=== PATIENT | female | born 1970 | race Caucasian/White ===

== ENCOUNTER 2016-10-05 14:20 | Emergency (ER) | payer BC ==
--- NOTE | 2016-10-05 14:49 | UC ---
Syncope/New Syncope HPI - HPI Summary HPI Summary: 46 yo F with hip and back pain for 3 years, but for past month left hip in pain. For the past 3 days, when leaned in bed, left hip was painful. This am 0400 when went to , had severe pain, and then hit her head on the bottom of the door. Pt had no recollection of this. got pt up, and then pt fell on the floor again, "lost consciousness", "had no color" was "sweaty". Then 0800 pt sat on toilet with severe left hip pain, pt sat and leaned back, and "couldn't see" for more than 10 seconds. Pt attributes this passing out to the severe pain in her left hip. States she has never passed out before. wanted to take pt at that time to the ER. Pt then drove self to work, finished work, was not sick at work, and then drove herself her to . Had MRI of her back 2 yrs ago which showed arthritis and narrowing and a disc. Pt states she has had episodes of "almost passing out" when she gets up quickly. Pt states her pain level is a 7 but declines any pain med at this time. - History Of Current Complaint Stated Complaint: HIP/BACK PAIN PASSED OUT X 3 Time Seen by Provider: 10/05/16 14:29 Hx Obtained From: Patient Hx Last Menstrual Period: ablation 9 years ago ?: No Onset/Duration: Sudden Onset, Lasting Hours, Resolved Activity At Onset: Other - getting up Timing: Constant Frequency: Episodes x___ - 3, Episodes Lasting ____ (in Mins/Days/Weeks/Years) - 10min Context: Witnessed - 2 x, Loss Of Consciousness Associated Head Trauma: Yes Pain Intensity: 7 - left hip, no head pain, no neck pain Pain Scale Used: 0-10 Numeric Aggravating Factor(s): Nothing Alleviating Factor(s): Nothing Associated Signs And Symptoms: Positive: Head Trauma (Recent) - this am, Other - left hip. Negative: Dizzy, Headache - Allergies/Home Medications Allergies/Adverse Reactions: Allergies Allergy/AdvReac Type Severity Reaction Status Date / Time Garlic Allergy See Comment Verified 10/05/16 14:59 Home Medications: Home Medications Amphetamine/Dextroamph ER(NF) [Adderal XR (NF)] 20 mg PO DAILY 10/05/16 [ History Confirmed 10/05/16] Hydrochlorothiazide [Microzide-] 25 mg PO DAILY 10/05/16 [History Confirmed ] PMH/Surg Hx/FS Hx/Imm Hx Previously Healthy: Yes - Surgical History Surgical History: Yes - ACL, ablation, - Family History Known Family History: Positive: Other - father with cancer; sister with heart murmur. - Social History Occupation: Employed Full-time Lives: With Family Alcohol Use: Weekly Substance Use Type: None Smoking Status (MU): Never Smoked Tobacco Review of Systems Constitutional: Negative Skin: Negative Eyes: Negative ENT: Negative Respiratory: Negative Cardiovascular: Negative Gastrointestinal: Negative Genitourinary: Negative Motor: Negative Neurovascular: Negative Musculoskeletal: Arthralgia - left hip Neurological: Negative Psychological: Negative All Other Systems Reviewed And Are Negative: Yes Physical Exam Triage Information Reviewed: Yes Appearance: Well-Appearing, Well-Nourished, Pain Distress Vital Signs: temp 100 noted Vital Signs Reviewed: Yes Eyes: Positive: Conjunctiva Clear ENT: Positive: Hearing grossly normal, Pharynx normal, TMs normal Neck: Positive: Supple, Nontender, No Lymphadenopathy Respiratory: Positive: Lungs clear, Normal breath sounds, No respiratory distress Cardiovascular: Positive: RRR, No Murmur, Pulses Normal, Brisk Capillary Refill Musculoskeletal: Positive: Strength Intact, ROM Intact, Other: - Left hip pain ant, able to bear weight Neurological: Positive: Alert, Muscle Tone Normal, Other: - CN II-XII intact, Motor 5/5 intact, Sensation intact; reflexes2+ symmetric Psychological Exam: Normal Skin Exam: Normal Syncope Course/Dx - Course Course Of Treatment: EKG SR, 74, nl AV, slight IVCD 130, no acute changes, no prior to compare. - Differential Dx/Diagnosis Differential Diagnosis/HQI/PQRI: Dysrhythmia, Pulmonary Embolism, Vasovagal Episode, Other - severe pain Provider Diagnoses: syncope. left hip pain Discharge - Discharge Plan Condition: Stable Disposition: AGAINST MEDICAL ADVICE Discharge Disposition Comment: pt will go by private car to ED with driving. Referrals: Benito Sykes MD [Primary Care Provider] -
[2016-10-05 15:30] VITALS: BP 115/70
== END 2016-10-05 15:17 | disposition left against medical advice (07) ==
LOC: UCEAST 14:20
DX: R55 Syncope and collapse (principal); M25.552 Pain in left hip
CPT/HCPCS: 81003; 87086; 93005; 99202; G0463

== ENCOUNTER 2016-10-05 15:45 | Emergency (ER) | payer BC ==
[2016-10-05 16:30] VITALS: BP 106/51
[2016-10-05] MEDS ORDERED: Ondansetron INJ* 2 MG/ML VIAL IV ONE (16:47)
[2016-10-05] MEDS ORDERED: NS 0.9% 1000 ML* 1,000 ML IV ONE (16:47)
[2016-10-05] MEDS ORDERED: Ketorolac INJ* 30 MG/ML 1 ML VIAL IV ONE (16:47)
[2016-10-05 17:04] LABS: Hematocrit 41 % (35-47); Mean Corpuscular HGB Conc 34 g/dl (31-36); Mean Corpuscular Hemoglobin 31 pg (27-31); Mean Corpuscular Volume 91 fL (80-97); Mean Platelet Volume 8 um3 (7.4-10.4); Red Blood Count 4.49 10^6/ul (4.0-5.4); Red Cell Distribution Width 13 % (10.5-15); White Blood Count 7.9 10^3/ul (3.5-10.8)
[2016-10-05 17:15] LABS: ALT 37 U/L (7-52); AST 30 U/L (13-39); Albumin 4.5 g/dL (3.2-5.2); Alkaline Phosphatase 58 U/L (34-104); Anion Gap 8 mmol/L (2-11); BUN/Creatinine Ratio 16.3 (8-20); Blood Urea Nitrogen 15 mg/dL (6-24); C Reactive Protein < 1.00 mg/L (< 5.00); CO2 Carbon Dioxide 25 mmol/L (22-32); Calcium 9.5 mg/dL (8.6-10.3); Chloride 102 mmol/L (101-111); EGFR African American 84.5 (>60); EGFR Non-African American 65.7 (>60); Globulin 3.1 g/dL (2-4); Glucose 110 mg/dL (70-100); Potassium 3.1 mmol/L (3.5-5.0); Sodium 135 mmol/L (133-145); Total Protein 7.6 g/dL (6.4-8.9)
--- NOTE | 2016-10-05 17:45 | RAD ---
Indication: Chronic low back pain extending to the LEFT hip for 3 days. Comparison: March 05, 2007 Technique: AP, lateral, and oblique views lumbar sacral spine. Report: Straightening relative to normal lumbar lordosis. Negative for spondylolisthesis at any level. Negative for fracture or spondylolysis. Multilevel mild vertebral endplate osteophytosis. Mild L5-S1 disc space narrowing. Mild multilevel facet joint osteoarthritis. Unremarkable paravertebral soft tissue contours. IMPRESSION: Multilevel mild degenerative spondylosis and facet joint osteoarthritis increased over the remote prior exam.
--- NOTE | 2016-10-05 17:46 | RAD ---
Indication: 3 days LEFT hip pain. Comparison: None. Technique: AP pelvis and AP and frog-leg lateral views LEFT hip. Report: The LEFT hip is normally located and without evidence for fracture or focal osseous lesion. Preserved LEFT hip joint space symmetric with the RIGHT. Unremarkable sacroiliac joints and pubic symphysis. Unremarkable soft tissue contours. IMPRESSION: Negative LEFT hip series.
--- NOTE | 2016-10-05 18:29 | ED ---
Nolberto Meza Anna, scribed for Shelia Pop MD on 10/05/16 at 1614 . Syncope/Near Syncope - HPI Summary HPI Summary: Patient is a 46 y/o female coming to [facility] presenting with constant acute on chronic left hip pain that began three days ago. The pain starts in her left pelvis and moves to her lower back. She has had pain there for years, but the pain became severe in the last three days. She has not been able to get out of bed or stand up because of the pain. The pain is somewhat alleviated by movement. She is not able to stay in the same position for a long period of time. Today, she lost consciousness three times because of the pain. The pain is currently at a severity of 7/10. Denies changes in urinary symptoms. She has been to physical therapy for the hip. Her PCP didnt want to give her an anti- inflammatory pill because then she would not be able to take her fluid pill. - History Of Current Complaint Chief Complaint: EDSyncope Time Seen by Provider: 10/05/16 16:08 Hx Obtained From: Patient, Family/Police Captain Senior - Accompanied by Onset/Duration: Lasting Days - Allergies/Home Medications Allergies/Adverse Reactions: Allergies Allergy/AdvReac Type Severity Reaction Status Date / Time Garlic Allergy See Comment Verified 10/05/16 15:49 PMH/Surg Hx/FS Hx/Imm Hx Endocrine/Hematology History: Denies: Hx Diabetes, Hx Thyroid Disease Cardiovascular History: Denies: Hx Hypertension Respiratory History: Denies: Hx Asthma, Hx Chronic Obstructive Pulmonary Disease (COPD) GI History: Denies: Hx Ulcer Psychiatric History: Reports: Hx Attention Deficit Hyperactivity Disorder - Surgical History Surgery Procedure, Year, and Place: acl. ablasion 2009 Infectious Disease History: No Infectious Disease History: Reports: Hx Shingles - 2 yrs ago Denies: Hx Clostridium Difficile, Hx Hepatitis, Hx Human Immunodeficiency Virus (HIV), Hx of Known/Suspected MRSA, Hx Tuberculosis, Hx Known/Suspected VRE , Hx Known/Suspected VRSA, History Other Infectious Disease, Traveled Outside the [place] in Last 30 Days - Family History Known Family History: Positive: Other - father with cancer Negative: Cardiac Disease - Social History Lives: With Family - with Alcohol Use: Weekly Substance Use Type: Reports: None Smoking Status (MU): Never Smoked Tobacco Review of Systems Positive: Arthralgia Positive: Syncope All Other Systems Reviewed And Are Negative: Yes Physical Exam Triage Information Reviewed: Yes Vital Signs On Initial Exam: Initial Vitals Temp Pulse Resp BP Pulse Ox 98.6 F 76 18 124/66 100 10/05/16 15:49 10/05/16 15:49 10/05/16 15:49 10/05/16 15:49 10/05/16 15:49 Vital Signs Reviewed: Yes Appearance: Positive: Well-Appearing, No Pain Distress Skin: Positive: Warm, Skin Color Reflects Adequate Perfusion, Dry Eyes: Positive: EOMI, DAMION ENT: Positive: Pharynx normal, TMs normal Neck: Positive: Supple, Nontender Respiratory/Lung Sounds: Positive: Clear to Auscultation, Breath Sounds Present. Negative: Rales, Rhonchi, Wheezes Cardiovascular: Positive: RRR. Negative: Murmur, Rub, Other - gallops Abdomen Description: Positive: Nontender, Soft. Negative: Distended, Guarding, Other: - rebound Bowel Sounds: Positive: Present Musculoskeletal: Positive: Other - Tenderness at SI join. Tenderness over L3-L5 in the paraspinal region.. Negative: Edema Left, Edema Right Neurological: Positive: Normal, Sensory/Motor Intact, Alert, Oriented to Person Place, Time, CN Intact II-III Psychiatric: Positive: Affect/Mood Appropriate Diagnostics - Vital Signs Vital Signs Temp Pulse Resp BP Pulse Ox 10/05/16 15:49 98.6 F 76 18 124/66 100 - Laboratory Lab Results: Lab Results 10/05/16 10/05/16 Range/Units 16:45 16:45 WBC 7.9 (3.5-10.8) 10^3/ul RBC 4.49 (4.0-5.4) 10^6/ul Hgb 14.0 (12.0-16.0) g/dl Hct 41 (35-47) % MCV 91 (80-97) fL MCH 31 (27-31) pg MCHC 34 (31-36) g/dl RDW 13 (10.5-15) % Plt Count 280 (150-450) 10^3/ul MPV 8 (7.4-10.4) um3 Neut % (Auto) 59.4 (38-83) % Lymph % (Auto) 33.5 (25-47) % [place] % (Auto) 6.0 (1-9) % Eos % (Auto) 0.7 (0-6) % Baso % (Auto) 0.4 (0-2) % Absolute Neuts (auto) 4.7 (1.5-7.7) 10^3/ul Absolute Lymphs (auto) 2.6 (1.0-4.8) 10^3/ul Absolute Monos (auto) 0.5 (0-0.8) 10^3/ul Absolute Eos (auto) 0.1 (0-0.6) 10^3/ul Absolute Basos (auto) 0 (0-0.2) 10^3/ul Absolute Nucleated RBC 0 10^3/ul Nucleated RBC % 0 Sodium 135 (133-145) mmol/L Potassium 3.1 L (3.5-5.0) mmol/L Chloride 102 (101-111) mmol/L Carbon Dioxide 25 (22-32) mmol/L Anion Gap 8 (2-11) mmol/L BUN 15 (6-24) mg/dL Creatinine 0.92 (0.51-0.95) mg/dL Est GFR ( Amer) 84.5 (>60) Est GFR (Non-Af Amer) 65.7 (>60) BUN/Creatinine Ratio 16.3 (8-20) Glucose 110 H (70-100) mg/dL Calcium 9.5 (8.6-10.3) mg/dL Total Bilirubin 0.40 (0.2-1.0) mg/dL AST 30 (13-39) U/L ALT 37 (7-52) U/L Alkaline Phosphatase 58 (34-104) U/L C-Reactive Protein < 1.00 (< 5.00) mg/L Total Protein 7.6 (6.4-8.9) g/dL Albumin 4.5 (3.2-5.2) g/dL Globulin 3.1 (2-4) g/dL Albumin/Globulin Ratio 1.5 (1-3) Result Diagrams: 10/05/16 16:45 10/05/16 16:45 Lab Statement: Any lab studies that have been ordered have been reviewed, and results considered in the medical decision making process. - Radiology Hip/Pelvis XR Xray Interpretation: No Acute Changes Radiology Interpretation Completed By: Radiologist - IMPRESSION: Negative LEFT hip series. SP Lumbarsacral Xray Interpretation: Positive (See Comments) Radiology Interpretation Completed By: Radiologist - IMPRESSION: Multilevel mild degenerative spondylosis and facet joint osteoarthritis increased over the remote prior exam. - EKG 1559 Cardiac Rate: NL - 62 bpm EKG Rhythm: Sinus Rhythm ST Segment: Normal Ectopy: None EKG Interpretation: No ST elevation. No Qs. Re-Evaluation - Re-Evaluation First Eval Re-Evaluation Time: 18:15 Change: Improved Comment: The patient is feeling much better. Discussed results and plan of care with patient. Patient agrees with plan. Course/Dx Course Of Treatment: pt with back/hip pain that is long standing with worsened over last few days (not a diabetic, no Cancer or ivda history) labs normal. except for mild hypokalemia (repleted here) given toradol with good relief xray of hip normal, lumbar spine with changes will f/u with pmd given medrol dosepack - Diagnoses Provider Diagnoses: Lumbar pain, Hip pain Discharge - Discharge Plan Condition: Stable Disposition: HOME Prescriptions: HYDROcodone/ACETAMIN 5-325 MG* [[place] 5-325 TAB*] 1 tab PO Q8H PRN #14 tab MDD 3 PRN Reason: Pain Methylprednisolone [Medrol Dosepak 4 MG*] 0 mg PO .SEE CHARO INSTRUCTION #1 charo Naproxen TAB* [Naprosyn TAB*] 500 mg PO BID #20 tab Patient Education Materials: Naproxen (By mouth), Methylprednisolone (By mouth) , Hip Pain (ED) Referrals: Benito Sykes MD [Primary Care Provider] - Additional Instructions: Follow up with primary care physician within 48 hours. Return to the emergency department for changing or worsening symptoms. The documentation as recorded by the Nolberto oates Anna accurately reflects the service I personally performed and the decisions made by me, Shelia Pop MD.
[2016-10-05] MEDS ORDERED: Potassium Chlor TAB* 20 MEQ TAB.ER PO ONE (18:34)
== END 2016-10-05 18:34 | disposition home or self-care (01) ==
LOC: ED 15:45
DX: M54.5 Low back pain (principal); M25.552 Pain in left hip; R55 Syncope and collapse
CPT/HCPCS: 36415; 72110; 80053; 85025; 86140; 93005; 96374; 96375; 99283; J1885; J2405

== ENCOUNTER 2018-06-06 14:52 | Emergency (ER) | payer BC ==
[2018-06-06 17:21] VITALS: BP 115/69
--- NOTE | 2018-06-06 17:30 | UC ---
UC General HPI - HPI Summary HPI Summary: pain to the outside of her R elbow ever since she fell and hit that area 3 weeks ago. pt has had pain to the inside of that elbow for years from use. she has self tx with a forearm band, k-tape, Issac Copper Sleeve and ice with no relief. pt has had PT in past for that elbow pain with no relief. - History of Current Complaint Chief Complaint: UCGeneralIllness Stated Complaint: ELBOW PAIN Time Seen by Provider: 06/06/18 17:23 Hx Obtained From: Patient Hx Last Menstrual Period: ablation Timing: Constant Pain Intensity: 7 Aggravating: movement - Allergy/Home Medications Allergies/Adverse Reactions: Allergies Allergy/AdvReac Type Severity Reaction Status Date / Time No Known Allergies Allergy Verified 06/06/18 17:22 Home Medications: Home Medications Cyclobenzaprine TAB* [Flexeril 10 MG TAB*] 10 mg PO TID PRN 06/06/18 [History Confirmed 06/06/18] Potassium Chlor TAB* [Klor Con ER TAB*] 20 meq PO DAILY 06/06/18 [History Confirmed 06/06/18] Triamterene/HCTZ 37.5-25 MG* [Dyazide CAP*] 1 cap PO DAILY 06/06/18 [History Confirmed 06/06/18] PMH/Surg Hx/FS Hx/Imm Hx - Additional Past Medical History Additional PMH: ADD, leg edema Neurological History: Migraine - Surgical History Surgical History: Yes Surgery Procedure, Year, and Place: acl. uterine ablation 2009. bladder sling 2017 - Family History Known Family History: Positive: Other - father with cancer Negative: Cardiac Disease - Social History Occupation: Employed Full-time Alcohol Use: Weekly Alcohol Amount: "on saturdays, just beer but I don't get drunk" Substance Use Type: None Smoking Status (MU): Never Smoked Tobacco - Immunization History Most Recent Influenza Vaccination: denies Vaccination Up to Date: Yes Review of Systems All Other Systems Reviewed And Are Negative: Yes Constitutional: Positive: Negative Skin: Positive: Negative Eyes: Positive: Negative ENT: Positive: Negative Respiratory: Positive: Negative Cardiovascular: Positive: Negative Gastrointestinal: Positive: Negative Genitourinary: Positive: Negative Motor: Positive: Negative Neurovascular: Positive: Negative Musculoskeletal: Positive: Other: - R elbow pain Neurological: Positive: Negative Psychological: Positive: Negative Is Patient Immunocompromised?: No Physical Exam Triage Information Reviewed: Yes Appearance: Well-Appearing Vital Signs: Initial Vital Signs Temp 98.4 F 06/06/18 17:15 Pulse 73 06/06/18 17:15 Resp 16 06/06/18 17:15 BP 115/69 06/06/18 17:15 Pulse Ox 100 06/06/18 17:15 Eye Exam: Normal Eyes: Positive: Conjunctiva Clear ENT: Positive: Normal ENT inspection Neck: Positive: Supple Respiratory: Positive: Lungs clear, Normal breath sounds Cardiovascular: Positive: RRR, No Murmur Abdomen Description: Positive: Nontender, No Organomegaly, Soft Bowel Sounds: Positive: Present Musculoskeletal: Positive: Other: - RUE: no gross deformity, swelling or discoloration. pt has point tenderness over the medial and lateral epicondyles. the arm has full s/v/m function. Neurological: Positive: Alert Psychological: Positive: Age Appropriate Behavior Skin Exam: Normal Skin: Negative: Rashes Diagnostics - Radiology No standard instances Radiology Interpretation Completed By: Radiologist - R elbow=IMPRESSION: NO ACUTE OSSEOUS INJURY. IF SYMPTOMS PERSIST, RECOMMEND REPEAT IMAGING. Course/Dx - Course Course Of Treatment: no concer for fx or infection. - Differential Dx - Multi-Symptom Provider Diagnoses: R elbow epicondylitis Discharge - Sign-Out/Discharge Documenting (check all that apply): Patient Departure All imaging exams completed and their final reports reviewed: Yes - Discharge Plan Condition: Stable Disposition: HOME Patient Education Materials: Tennis Elbow (ED) Referrals: Zachary Dia MD [Medical Doctor] - As Soon As Possible - Billing Disposition and Condition Condition: STABLE Disposition: Home
== END 2018-06-06 18:12 | disposition home or self-care (01) ==
LOC: UCCORT 14:52
DX: M77.11 Lateral epicondylitis, right elbow (principal); M77.01 Medial epicondylitis, right elbow
CPT/HCPCS: 99212; G0463

== ENCOUNTER 2019-09-03 21:19 | Emergency (ER) | payer BC ==
[2019-09-03 22:03] LABS: ABS Eosinophils 0.1 10^3/ul (0-0.6); ABS Lymphocytes 2.4 10^3/ul (1.0-4.8); ABS Monocytes 0.6 10^3/ul (0-0.8); ABS Neutrophils 7.8 10^3/ul (1.5-7.7); Eosinophil % 0.5 %; Hematocrit 39 % (35-47); Hemoglobin 13.3 g/dL (12.0-16.0); Lymphocyte % 22.4 %; Mean Corpuscular HGB Conc 34 g/dL (31-36); Mean Corpuscular Hemoglobin 31 pg (27-31); Mean Corpuscular Volume 91 fL (80-97); Mean Platelet Volume 7.1 fL (7.4-10.4); Nucleated Red Blood Cells % 0.1; Platelet Count 295 10^3/uL (150-450); Red Blood Count 4.24 10^6 /uL (3.70-4.87); Red Cell Distribution Width 13 % (10-15); White Blood Count 10.9 10^3/uL (3.5-10.8)
[2019-09-03 22:21] LABS: ALT 24 U/L (7-52); AST 18 U/L (13-39); Albumin 4.4 g/dL (3.2-5.2); Albumin/Globulin Ratio 1.5 (1-3); Alkaline Phosphatase 87 U/L (34-104); Anion Gap 7 mmol/L (2-11); BUN/Creatinine Ratio 13.5 (8-20); Blood Urea Nitrogen 12 mg/dL (6-24); C Reactive Protein 30.48 mg/L (<8.01); CO2 Carbon Dioxide 28 mmol/L (22-32); Calcium 9.3 mg/dL (8.6-10.3); Chloride 99 mmol/L (101-111); EGFR African American 81.6 (>60); EGFR Non-African American 67.4 (>60); Globulin 2.9 g/dL (2-4); Glucose 96 mg/dL (70-100); Potassium 3.8 mmol/L (3.5-5.0); Sodium 134 mmol/L (135-145); Total Protein 7.3 g/dL (6.4-8.9)
[2019-09-03] MEDS ORDERED: NS 0.9% 1000 ML** 1,000 ML IV ONE (22:40)
[2019-09-03] MEDS ORDERED: Morphine 4 MG/ML VIAL (1 ml) 4 MG/ML VIAL IV ONE (22:40)
--- NOTE | 2019-09-03 22:44 | ED ---
Abdominal Pain/Female - HPI Summary HPI Summary: This pt is a 49 Y/O F presenting to [facility] with a CC of RLQ abdominal pain that has been present since last night and worsened this date at 2121 to a 7/10 in severity. She states that she has had no bowel movements today and has had no appetite. She states that the pain is described as a cramping. She states that when the pain began she had loose bowel movements. She denies any CP, fevers, headaches, SOB, or N/V. She states that she has a PMHx of an ablation and a bladder sling. Medications reviewed. Allergies noted. Home Medications Medication Instructions Recorded Confirmed Type Amphetamine/Dextroamph ER(NF) 25 mg PO DAILY 10/05/16 09/03/19 History [Adderal XR (NF)] Cyclobenzaprine TAB* [Flexeril 10 10 mg PO TID PRN 06/06/18 09/03/19 History MG TAB*] Potassium Chlor TAB* [Klor Con ER 20 meq PO DAILY 06/06/18 09/03/19 History TAB*] Triamterene/HCTZ 37.5-25 MG* 1 cap PO DAILY 06/06/18 09/03/19 History [Dyazide CAP*] - History of Current Complaint Chief Complaint: EDAbdPain Stated Complaint: R SIDE ABD PAIN PER PT Time Seen by Provider: 09/03/19 22:14 Hx Obtained From: Patient Hx Last Menstrual Period: ablation ?: No Onset/Duration: Sudden Onset, Lasting Days - 1, Still Present, Worse Since - 2121 this date Timing: Constant Severity Initially: Moderate Severity Currently: Severe Pain Intensity: 7 Pain Scale Used: 0-10 Numeric Location: Discrete At: RLQ Radiates: No Character: Cramping Aggravating Factor(s): Nothing Alleviating Factor(s): Nothing Associated Signs and Symptoms: Positive: Negative - SOB, headaches, Decreased Appetite. Negative: Fever, Chest Pain, Nausea, Vomiting, Diarrhea Allergies/Adverse Reactions: Allergies Allergy/AdvReac Type Severity Reaction Status Date / Time garlic Allergy MIGRAINE Verified 09/03/19 22:24 Home Medications: Home Medications Amphetamine/Dextroamph ER(NF) [Adderal XR (NF)] 25 mg PO DAILY 10/05/16 [ History Confirmed 09/03/19] Cyclobenzaprine TAB* [Flexeril 10 MG TAB*] 10 mg PO TID PRN 06/06/18 [History Confirmed 09/03/19] Potassium Chlor TAB* [Klor Con ER TAB*] 20 meq PO DAILY 06/06/18 [History Confirmed 09/03/19] Triamterene/HCTZ 37.5-25 MG* [Dyazide CAP*] 1 cap PO DAILY 06/06/18 [History Confirmed 09/03/19] Dicyclomine CAP* [Bentyl CAP*] 10 mg PO TID PRN #20 cap 09/04/19 [Rx] PMH/Surg Hx/FS Hx/Imm Hx Previously Healthy: Yes Endocrine/Hematology History: Denies: Hx Diabetes, Hx Thyroid Disease Cardiovascular History: Denies: Hx Hypertension, Hx Pacemaker/ICD Respiratory History: Denies: Hx Asthma, Hx Chronic Obstructive Pulmonary Disease (COPD) GI History: Denies: Hx Ulcer History: Denies: Hx Renal Disease Sensory History: Denies: Hx Hearing Aid Psychiatric History: Reports: Hx Attention Deficit Hyperactivity Disorder Denies: Hx Panic Disorder - Cancer History Hx Chemotherapy: No Hx Radiation Therapy: No - Surgical History Surgical History: Yes Surgery Procedure, Year, and Place: acl RIGHT. uterine ablation 2009. bladder sling 2016 - Immunization History Date of Influenza Vaccine: none Immunizations Up to Date: Yes Infectious Disease History: Yes Infectious Disease History: Reports: Hx Shingles Denies: Hx Clostridium Difficile, Hx Hepatitis, Hx Human Immunodeficiency Virus (HIV), Hx of Known/Suspected MRSA, Hx Tuberculosis, Hx Known/Suspected VRE , Hx Known/Suspected VRSA, History Other Infectious Disease, Traveled Outside the [place] in Last 30 Days - Family History Known Family History: Positive: Other - father with cancer Negative: Cardiac Disease - Social History Occupation: Employed Full-time Lives: With Family Alcohol Use: Occasionally Alcohol Amount: "on saturdays, just beer but I don't get drunk" Hx Substance Use: No Substance Use Type: Reports: None Hx Tobacco Use: No Smoking Status (MU): Never Smoked Tobacco Review of Systems Negative: Fever Negative: Chest Pain Negative: Shortness Of Breath Positive: Abdominal Pain. Negative: Vomiting, Diarrhea, Nausea Negative: Headache All Other Systems Reviewed And Are Negative: Yes Physical Exam - Summary Physical Exam Summary: Constitutional: Well-developed, Well-nourished, Alert. (-) Distressed Skin: Warm, Dry HENT: Normocephalic; Atraumatic Eyes: Conjunctiva normal Neck: Musculoskeletal ROM normal neck. (-) JVD, (-) Stridor, (-) Tracheal deviation Cardio: Rhythm regular, rate normal, Heart sounds normal; Intact distal pulses; Radial pulses are 2+ and symmetric. (-) Murmur Pulmonary/Chest wall: Effort normal. (-) Respiratory distress, (-) Wheezes, (-) Rales Abd: Soft, Positive point tenderness in RLQ, negative obturator sign, positive Rovsing sign, (-) Distension, (-) Guarding, (-) Rebound Musculoskeletal: (-) Edema Lymph: (-) Cervical adenopathy Neuro: Alert, Oriented x3 Psych: Mood and affect Normal Triage Information Reviewed: Yes Vital Signs On Initial Exam: Initial Vitals Temp Pulse Resp BP Pulse Ox 97.6 F 87 20 136/96 99 09/03/19 21:21 09/03/19 21:21 09/03/19 21:21 09/03/19 21:21 09/03/19 21:21 Vital Signs Reviewed: Yes Procedures - Sedation Patient Received Moderate/Deep Sedation with Procedure: No Diagnostics - Vital Signs Vital Signs Temp Pulse Resp BP Pulse Ox 09/03/19 22:17 73 112/66 97 09/03/19 22:16 72 98 09/03/19 21:21 97.6 F 87 20 136/96 99 - Laboratory Lab Results: Lab Results 09/03/19 09/03/19 Range/Units 21:56 21:56 WBC 10.9 H (3.5-10.8) 10^3/uL RBC 4.24 (3.70-4.87) 10^6 /uL Hgb 13.3 (12.0-16.0) g/dL Hct 39 (35-47) % MCV 91 (80-97) fL MCH 31 (27-31) pg MCHC 34 (31-36) g/dL RDW 13 (10-15) % Plt Count 295 (150-450) 10^3/uL MPV 7.1 L (7.4-10.4) fL Neut % (Auto) 71.6 % Lymph % (Auto) 22.4 % Hood % (Auto) 5.1 % Eos % (Auto) 0.5 % Baso % (Auto) 0.4 % Absolute Neuts (auto) 7.8 H (1.5-7.7) 10^3/ul Absolute Lymphs (auto) 2.4 (1.0-4.8) 10^3/ul Absolute Monos (auto) 0.6 (0-0.8) 10^3/ul Absolute Eos (auto) 0.1 (0-0.6) 10^3/ul Absolute Basos (auto) 0.0 (0-0.2) 10^3/ul Absolute Nucleated RBC 0.0 10^3/ul Nucleated RBC % 0.1 Sodium 134 L (135-145) mmol/L Potassium 3.8 (3.5-5.0) mmol/L Chloride 99 L (101-111) mmol/L Carbon Dioxide 28 (22-32) mmol/L Anion Gap 7 (2-11) mmol/L BUN 12 (6-24) mg/dL Creatinine 0.89 (0.51-0.95) mg/dL Est GFR ( Amer) 81.6 (>60) Est GFR (Non-Af Amer) 67.4 (>60) BUN/Creatinine Ratio 13.5 (8-20) Glucose 96 (70-100) mg/dL Calcium 9.3 (8.6-10.3) mg/dL Total Bilirubin 0.60 (0.2-1.0) mg/dL AST 18 (13-39) U/L ALT 24 (7-52) U/L Alkaline Phosphatase 87 (34-104) U/L C-Reactive Protein 30.48 H (<8.01) mg/L Total Protein 7.3 (6.4-8.9) g/dL Albumin 4.4 (3.2-5.2) g/dL Globulin 2.9 (2-4) g/dL Albumin/Globulin Ratio 1.5 (1-3) Lipase < 10 L (11.0-82.0) U/L Result Diagrams: 09/03/19 21:56 09/03/19 21:56 Lab Statement: Any lab studies that have been ordered have been reviewed, and results considered in the medical decision making process. - CT CT A/P CT Interpretation Completed By: Radiologist Summary of CT Findings: No CT findings to correlate with the Pt's symptomology. Bilateral ovarian cysts present. ED physician has reviewed this report. Abdominal Pain Fem Course/Dx - Course Course Of Treatment: Patient is here with right lower quadrant pain. Patient's had similar abscesses in the past. Patient did have point tenderness at her right lower quadrant. Patient had little performed which showed a leukocytosis and elevated CRP. Patient had a CT scan showed no abnormality. - Diagnoses Provider Diagnoses: RLQ abdominal pain Discharge ED - Sign-Out/Discharge Documenting (check all that apply): Patient Departure - discharge - Discharge Plan Condition: Good Disposition: HOME Prescriptions: Dicyclomine CAP* [Bentyl CAP*] 10 mg PO TID PRN #20 cap PRN Reason: abdominal cramping Patient Education Materials: Abdominal Pain (ED) Referrals: Benito Sykes MD [Primary Care Provider] - Yasmany Varner MD [Medical Doctor] - Additional Instructions: Take your medications as prescribed, use heat on your abdomen as well. Please follow up with Dr. Varner, Gastrology, for an appointment. RETURN TO THE EMERGENCY DEPARTMENT FOR ANY SEVERE WORSENING PAIN, FEVERS, OR INTENSE NAUSEA AND VOMITING. - Billing Disposition and Condition Condition: GOOD Disposition: Home - Attestation Statements Document Initiated by Sulaiman: Yes Documenting Scribe: Clayton Blackburn Provider For Whom Sulaiman is Documenting (Include Credential): Cedric Salcido MD Scribe Attestation: Clayton Meza, scribed for Cedric Salcido MD on 09/06/19 at 0946. Scribe Documentation Reviewed: Yes Provider Attestation: The documentation as recorded by the Clayton oates accurately reflects the service I personally performed and the decisions made by Cedric jacobson MD Status of Scribe Document: Viewed
[2019-09-03] MEDS ORDERED: Iohexol 300* (CONTRAST) 10 ML SDV IV ONE (22:45)
[2019-09-03 23:34] LABS: HCG Pregnancy < 0.60 mIU/mL
[2019-09-04] MEDS ORDERED: Dicyclomine CAP* 10 MG PO ONE (00:06)
[2019-09-04 00:31] VITALS: BP 122/86
== END 2019-09-04 00:20 | disposition home or self-care (01) ==
LOC: ED 21:19
DX: R10.31 Right lower quadrant pain (principal); Z79.899 Other long term (current) drug therapy; Z86.61 Personal history of infections of the central nervous system; F90.9 Attention-deficit hyperactivity disorder, unspecified type
CPT/HCPCS: 36415; 74177; 80053; 83690; 84702; 85025; 86140; 96361; 96374; 99283; A9270-GY; J2270; Q9967

== ENCOUNTER 2019-11-12 06:50 | Day surgery (SDC) | payer BC ==
[~2019-11-12 06:50] MED LIST: Buffered Lidocaine 1% SYRIN 1 ml INTRADERM ONE; Famotidine IV 10 MG/ML 2 ml VIAL (20 mg) IV ONE; Lactated Ringers 1000 ml BAG 1,000 ML IV SCH
[2019-11-12] MEDS ORDERED: ceFAZolin 2 GM PREMIX in ORs 2 GM/50 ML BAG ONE (06:58)
[2019-11-12] MEDS ORDERED: Famotidine IV 10 MG/ML 2 ml VIAL (20 mg) ONE (06:59)
[2019-11-12] MEDS ORDERED: fentaNYL 100 mcg/2 ml 50 MCG/ML VIAL ONE (08:06)
[2019-11-12] MEDS ORDERED: Midazolam 2 mg/2 ml VIAL 1 mg/ml 2 ml VIAL (2 mg) ONE ×2 (08:06→08:35)
[2019-11-12] MEDS ORDERED: Bupivacaine 0.25% SDV 30 ML ONE ×2 (08:18→08:48)
[2019-11-12] MEDS ORDERED: Propofol 10 MG/ML 20 ML BTL ONE (08:36)
[2019-11-12] MEDS ORDERED: Lidocaine 2% PF 5 ML VIAL ONE (08:36)
[2019-11-12] MEDS ORDERED: Dexamethasone IV 4 MG/ML VIAL 1 ml VIAL ONE (08:36)
[2019-11-12] MEDS ORDERED: diPHENhydraMINE IV 50 MG/ML 1 ml VIAL (BENADRYL) IV PRN (08:40)
[2019-11-12] MEDS ORDERED: HYDROcodone/ACETAMIN 5/325 mg TAB PO PRN (08:40)
[2019-11-12] MEDS ORDERED: Naloxone 0.4 mg VIAL 0.4 mg/ml 1 ml VIAL IV PRN (08:40)
[2019-11-12] MEDS ORDERED: Ondansetron 4 mg VIAL 2 MG/ML 2 ml VIAL IV PRN (08:40)
[2019-11-12] MEDS ORDERED: DiMENhydriNATE IV 50 mg/ml 1 ml VIAL IV PUSH PRN (08:40)
[2019-11-12] MEDS ORDERED: fentaNYL 100 mcg/2 ml 50 MCG/ML VIAL IV PRN (08:40)
[2019-11-12] MEDS ORDERED: diPHENhydraMINE IV 50 MG/ML 1 ml VIAL (BENADRYL) ONE (08:43)
[2019-11-12 10:45] VITALS: BP 88/51
== END 2019-11-12 10:53 | disposition home or self-care (01) ==
LOC: OR 06:50
PROVIDERS: ATTEND Orthopaedic Surgery Hand Surgery